=== PATIENT | male | born 1995 | race African-American/Black ===

== ENCOUNTER 2016-12-12 18:09 | Emergency (ER) | payer OTHER ==
[2016-12-12] MEDS ORDERED: AZITHROMYCIN 250 MG TABLET PO ONE (19:09)
[2016-12-12] MEDS ORDERED: CEFTRIAXONE INJ 250 MG VIAL IM ONE (19:09)
[2016-12-12] MEDS ORDERED: LIDOCAINE 1% INJ-PF (10 MG/ML) 30 ML SDV INJ ONE (19:09)
--- NOTE | 2016-12-12 19:13 | ER Document Report ---
HPI - HPI Patient complains to provider of: penile discharge and burning Onset: Other - One week Onset/Duration: Sudden Quality of pain: Burning Severity: Mild Pain Level: 2 Associated Symptoms: None Exacerbated by: Other - Voiding Relieved by: Denies Similar symptoms previously: No Recently seen / treated by doctor: No - ROS ROS below otherwise negative: Yes Systems Reviewed and Negative: Yes All other systems reviewed and negative - CONSTITUTIONAL Constitutional: DENIES: Fever - EENT EENT: DENIES: Congestion - NEURO Neurology: DENIES: Headache - CARDIOVASCULAR Cardiovascular: DENIES: Chest pain - RESPIRATORY Respiratory: DENIES: Trouble Breathing - GASTROINTESTINAL Gastrointestinal: DENIES: Abdominal Pain - URINARY Urinary: REPORTS: Dysuria - MUSCULOSKELETAL Musculoskeletal: DENIES: Extremity pain - DERM Skin Color: Normal Skin Problems: None Past Medical History - General Information source: Patient - Social History Smoking Status: Current Every Day Smoker Cigarette use (# per day): Yes Frequency of alcohol use: None Drug Abuse: None Lives with: Alone Family History: Reviewed & Not Pertinent Patient has suicidal ideation: No Patient has homicidal ideation: No - Medical History Medical History: Negative Renal/ Medical History: Denies: Hx Peritoneal Dialysis Surgical Hx: Negative - Immunizations Immunizations up to date: Yes Vertical Provider Document - CONSTITUTIONAL Agree With Documented VS: Yes Exam Limitations: No Limitations General Appearance: WD/WN, No Apparent Distress - HEENT HEENT: Atraumatic, Normocephalic - RESPIRATORY Respiratory: Breath Sounds Normal, No Respiratory Distress O2 Sat by Pulse Oximetry: 100 - CARDIOVASCULAR Cardiovascular: Regular Rate, Regular Rhythm - GI/ABDOMEN Gastrointestinal: Abdomen Soft, Abdomen Non-Tender, Normal Bowel Sounds - MUSCULOSKELETAL/EXTREMETIES Musculoskeletal/Extremeties: YULI VARELA - NEURO Level of Consciousness: Awake, Alert, Appropriate - DERM Integumentary: Warm, Dry Course - Vital Signs Vital signs: Temp Pulse Resp BP Pulse Ox 98.7 F 66 16 145/51 H 100 12/12/16 18:45 12/12/16 18:45 12/12/16 18:45 12/12/16 18:45 12/12/16 18:45 Discharge - Discharge Clinical Impression: Penile discharge Condition: Good Disposition: HOME, SELF-CARE Additional Instructions: It will take about 3 hours for the results to come back. Call [phone] after 11 PM for results. If positive, you will need to notify all partners to seek treatment at any Urgent Care, Health Dept or the doctor. You have already been treated for possible gonorrhea and chlamydia since you were having symptoms Always wear condoms Follow-up with your BAS for any problems Return as needed
[2016-12-12] MEDS ORDERED: AZITHROMYCIN 250 MG TABLET ONE (19:39)
[2016-12-12 19:48] VITALS: BP 155/71
[2016-12-12 21:03] LABS: CHLAM PCR NOT DETECTED (NOT DETECT)
== END 2016-12-12 19:49 | disposition home or self-care (01) ==
LOC: ER 18:09
DX: R36.9 Urethral discharge, unspecified (principal); R30.0 Dysuria; F17.210 Nicotine dependence, cigarettes, uncomplicated
CPT/HCPCS: 99283; 96372; 87491; 87591; J3490; J0696

== ENCOUNTER 2018-03-07 19:23 | Emergency (ER) | payer OTHER ==
[2018-03-07 19:30] VITALS: BP 148/64
--- NOTE | 2018-03-07 20:07 | ER Document Report ---
HPI - HPI Patient complains to provider of: Possible STD Onset: Other - 2 weeks ago Onset/Duration: Gradual Pain Level: 1 Context: 22-year-old male had intercourse with a female without a condom about 2 weeks ago. She told him that he may have been exposed to an STI. He is [employer]. He has some dysuria and some discharge at sticks to his underwear. He has not been checked by the . No pelvic pain. No back pain. No fever or chills. Denies penile swelling, no testicular pain or swelling. Patient is uncircumcised and denies any lesions. Associated Symptoms: None Exacerbated by: Denies Relieved by: Denies Similar symptoms previously: No Recently seen / treated by doctor: No - ROS ROS below otherwise negative: Yes Systems Reviewed and Negative: Yes All other systems reviewed and negative Past Medical History - General Information source: Patient - Social History Smoking Status: Never Smoker Frequency of alcohol use: None Drug Abuse: None Lives with: Family Family History: Reviewed & Not Pertinent - Medical History Medical History: Negative Renal/ Medical History: Denies: Hx Peritoneal Dialysis Surgical Hx: Negative - Immunizations Immunizations up to date: Yes Vertical Provider Document - CONSTITUTIONAL Agree With Documented VS: Yes Exam Limitations: No Limitations - INFECTION CONTROL TRAVEL OUTSIDE OF THE [place] IN LAST 30 DAYS: No - HEENT HEENT: Atraumatic - NECK Neck: Supple - GI/ABDOMEN Gastrointestinal: Abdomen Soft, Abdomen Non-Tender - BACK Back: negative: CVA Tenderness-Right, CVA Tenderness-Left - MUSCULOSKELETAL/EXTREMETIES Musculoskeletal/Extremeties: YULI VARELA - NEURO Level of Consciousness: Awake, Alert Course - Re-evaluation Re-evalutation: 03/07/18 20:16 Patient does not want to be tested he just wants to be treated. [place] clearance of the infection in 2 weeks and not to engage in intercourse. I did stress to him to use condoms and explained to him all of the STI's if he wanted further evaluation it can be done on the basis. - Vital Signs Vital signs: Temp Pulse Resp BP Pulse Ox 98.7 F 53 L 16 148/64 H 99 03/07/18 19:28 03/07/18 19:28 03/07/18 19:28 03/07/18 19:28 03/07/18 19:28 Discharge - Discharge Clinical Impression: STI exposure, Urethritis Condition: Good Disposition: HOME, SELF-CARE Instructions: Rocephin ([facility]), Azithromycin ([facility]), Gonorrhea ([facility]), Chlamydia ( [facility]) Additional Instructions: [place] 2 [place] to test for cure for gonorrhea chlamydia you may also be tested for HIV and hepatitis which are sexually transmitted. Use condoms [place] if [place] have any penile, foreskin, scrotal, testicular swelling, pain, or any fever. Return to the emergency department if you develop any abdominal pain or pelvic pain.
[2018-03-07] MEDS ORDERED: LIDOCAINE 1% INJ-PF (10 MG/ML) 30 ML SDV INFIL ONE (20:15)
[2018-03-07] MEDS ORDERED: CEFTRIAXONE INJ 250 MG VIAL IM ONE (20:15)
[2018-03-07] MEDS ORDERED: AZITHROMYCIN 250 MG TABLET PO ONE (20:15)
== END 2018-03-07 20:35 | disposition home or self-care (01) ==
LOC: ER 19:23
DX: Z20.2 Contact with and (suspected) exposure to infections with a predominantly sexual mode of transmission (principal); N34.2 Other urethritis
CPT/HCPCS: 99283; 96372; J3490; J0696